=== PATIENT | female | born 2000 | race Caucasian/White ===

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

== ENCOUNTER 2021-09-13 01:16 | Observation (INO) | payer OTHER ==
[~2021-09-13 01:16] MED LIST: ONDA4TAB12 PO; OSEL75CA PO
[2021-09-13] MEDS ORDERED: IV RINGERS,LACTATED 1000ML 1,000 ML IV PRN (01:30)
[2021-09-13 01:44] LABS: BILIRUBIN,URINE SMALL (NEG); CLARITY,URINE CLEAR; COLOR,URINE AMBER; NITRITE,URINE NEGATIVE (NEG); PH,URINE 5.5 (<5.0-8.0); PROTEIN,URINE NEGATIVE (NEG-TRACE)
[2021-09-13 01:51] LABS: AMPHETAMINE/METHAMPHETAMINE NEG (NEG); BARBITURATES NEG (NEG); BENZODIAZEPINES NEG (NEG); CANNABINOIDS NEG (NEG); COCAINE NEG (NEG); METHADONE NEG (NEG); OPIATES NEG (NEG); PHENCYCLIDINE NEG (NEG)
[2021-09-13 01:58] LABS: BACTERIA,URINE FEW /HPF (0-FEW); RBC,URINE 0 /HPF (0-2)
[2021-09-13 02:10] LABS: AMNIO PT NEGATIVE
[2021-09-13] MEDS ORDERED: ACETAMINOPHEN 500 MG TABLET PO ONE (02:30)
== END 2021-09-13 04:05 | disposition home or self-care (01) ==
LOC: 3 SO LND 01:16
PROVIDERS: ADMIT Obstetrics & Gynecology; ATTEND Obstetrics & Gynecology
DX: O99.891 Other specified diseases and conditions complicating pregnancy (principal); M54.9 Dorsalgia, unspecified; R10.30 Lower abdominal pain, unspecified; O26.892 Other specified pregnancy related conditions, second trimester; H53.9 Unspecified visual disturbance; Z3A.21 21 weeks gestation of pregnancy; Z79.899 Other long term (current) drug therapy
CPT/HCPCS: 36415; 59025; 80307; 81001; 84112; G0378; G0379

== ENCOUNTER 2021-11-05 15:36 | Observation (INO) | payer OTHER ==
[2021-11-05 18:15] LABS: BILIRUBIN,URINE NEGATIVE (NEG); CLARITY,URINE CLEAR; COLOR,URINE YELLOW; NITRITE,URINE NEGATIVE (NEG); PROTEIN,URINE NEGATIVE (NEG-TRACE); UROBILINOGEN,URINE 0.2 mg/dL (0.2 mg/dL)
[2021-11-05 18:25] LABS: BACTERIA,URINE FEW /HPF (0-FEW); RBC,URINE OCC /HPF (0-2)
== END 2021-11-05 18:55 | disposition home or self-care (01) ==
LOC: 3 SO LND 15:36
PROVIDERS: ADMIT Obstetrics & Gynecology; ATTEND Obstetrics & Gynecology
DX: O62.9 Abnormality of forces of labor, unspecified (principal); O42.913 Preterm premature rupture of membranes, unspecified as to length of time between rupture and onset of labor, third trimester; Z3A.29 29 weeks gestation of pregnancy
CPT/HCPCS: 59025; 81001; G0378; G0379

== ENCOUNTER 2021-12-18 17:01 | Observation (INO) | payer OTHER ==
[2021-12-18 17:47] LABS: BILIRUBIN,URINE NEGATIVE (NEG); CLARITY,URINE CLEAR; COLOR,URINE AMBER; NITRITE,URINE NEGATIVE (NEG); PH,URINE 6.5 (<5.0-8.0); PROTEIN,URINE 30 mg/dL (NEG-TRACE)
[2021-12-18] MEDS ORDERED: IV RINGERS,LACTATED 1000ML 1,000 ML IV SCH (18:00)
[2021-12-18 18:10] LABS: BACTERIA,URINE MODERATE /HPF (0-FEW)
[2021-12-18 18:11] LABS: RBC,URINE >40 /HPF (0-2)
== END 2021-12-18 20:20 | disposition home or self-care (01) ==
LOC: 3 SO LND 17:01
PROVIDERS: ADMIT Obstetrics & Gynecology; ATTEND Obstetrics & Gynecology
DX: O46.93 Antepartum hemorrhage, unspecified, third trimester (principal); Z79.899 Other long term (current) drug therapy; Z3A.35 35 weeks gestation of pregnancy
CPT/HCPCS: 59025; 81001; 87086; G0378; G0379

== ENCOUNTER 2021-12-27 12:36 | Observation (INO) | payer OTHER ==
[2021-12-27] MEDS ORDERED: IV RINGERS,LACTATED 1000ML 1,000 ML IV PRN ×2 (13:15)
[2021-12-27] MEDS ORDERED: hydrOXYzine 25 MG TABLET PO PRN (14:15)
[2021-12-27 14:52] LABS: BILIRUBIN,URINE NEGATIVE (NEG); CLARITY,URINE CLOUDY; COLOR,URINE YELLOW; NITRITE,URINE NEGATIVE (NEG); PH,URINE 7.5 (<5.0-8.0); PROTEIN,URINE NEGATIVE (NEG-TRACE)
[2021-12-27 14:56] LABS: CREATININE,RANDOM URINE 61.2 mg/dL (Not Establ.)
[2021-12-27 15:00] LABS: AMPHETAMINE/METHAMPHETAMINE NEG (NEG); BARBITURATES NEG (NEG); BENZODIAZEPINES NEG (NEG); CANNABINOIDS NEG (NEG); COCAINE NEG (NEG); METHADONE NEG (NEG); OPIATES NEG (NEG); PHENCYCLIDINE NEG (NEG)
[2021-12-27 15:15] LABS: AMORPHOUS SEDIMENT,UR PRESENT /HPF; BACTERIA,URINE 0 /HPF (0-FEW); RBC,URINE 0 /HPF (0-2); WBC,URINE 0 /HPF (0-4)
[2021-12-27 15:26] LABS: BASO % 0 % (0-3); EOS % 0 % (0-3); HEMATOCRIT 34.7 % (36.0-47.0); HEMOGLOBIN 11.3 g/dL (12.0-15.5); LYMPH # 1.4 x10^3/uL (1.0-4.8); LYMPH % 13 % (24-48); MEAN CORPUSCULAR HEMOGLOBIN 29 pg (25-35); MEAN CORPUSCULAR HGB CONC 33 g/dL (31-37); MEAN CORPUSCULAR VOLUME 89 fL (79-100); MONO # 0.6 x10^3/uL (0.0-1.1); MONO % 6 % (0-9); NEUT # 8.8 x10^3/uL (1.8-7.7); NEUT % 81 % (31-73); PLATELET COUNT 198 x10^3/uL (140-400); RED BLOOD COUNT 3.88 x10^6/uL (3.50-5.40); RED CELL DISTRIBUTION WIDTH 14.7 % (11.5-14.5); WHITE BLOOD COUNT 10.9 x10^3/uL (4.0-11.0)
--- NOTE | 2021-12-27 15:27 | RAD ---
INDICATION: Reason: decreased movement / Spl. Instructions: / History: COMPARISON: None. TECHNIQUE: Focused ultrasound was performed of the uterus in order to obtain a biophysical pro file. Please note that this is not a complete anatomic survey. FINDINGS: Breathin Gross Body Movement: 0 Tone: 2 Amniotic Fluid Volume 2. Cephalic presentation at time of exam. Amniotic fluid index is 9.8. heart rate is 157 IMPRESSION: biophysical profile score is 6 out of 8 with the decrease secondary to decreased movement . Continued follow-up could be obtained. Electronically signed by: Andriy Osman MD (12/27/2021 3:25 PM) [id number]
[2021-12-27 15:47] LABS: CALCIUM 8.9 mg/dL (8.5-10.1); CREATININE 0.6 mg/dL (0.6-1.0); GFR 126.2; POTASSIUM 4.6 mmol/L (3.5-5.1)
[2021-12-27 15:52] LABS: ALBUMIN 2.4 g/dL (3.4-5.0); ALBUMIN/GLOBULIN RATIO 0.5 (1.0-1.7); URIC ACID 3.1 mg/dL (2.6-6.0)
== END 2021-12-27 17:20 | disposition home or self-care (01) ==
LOC: 3 SO LND 12:36
PROVIDERS: ADMIT Obstetrics & Gynecology; ATTEND Obstetrics & Gynecology
DX: O62.9 Abnormality of forces of labor, unspecified (principal); O99.891 Other specified diseases and conditions complicating pregnancy; M54.9 Dorsalgia, unspecified; O36.8130 Decreased fetal movements, third trimester, not applicable or unspecified; O26.893 Other specified pregnancy related conditions, third trimester; R51.9 Headache, unspecified; Z3A.36 36 weeks gestation of pregnancy; Z79.899 Other long term (current) drug therapy; Z98.890 Other specified postprocedural states
CPT/HCPCS: 36415; 59025; 76819; 80053; 80307; 81001; 82570; 83615; 84156; 84550; 85025; 96360; G0378; G0379; J7120

== ENCOUNTER 2022-01-03 19:23 | Inpatient (IN) | payer OTHER ==
[~2022-01-03] VITALS: Ht 157.5 cm; Wt 86.0 kg
[2022-01-03] MEDS ORDERED: IV RINGERS,LACTATED 1000ML 1,000 ML IV PRN (19:45)
[2022-01-03 20:10] LABS: BILIRUBIN,URINE SMALL (NEG); CLARITY,URINE CLEAR; COLOR,URINE AMBER; NITRITE,URINE NEGATIVE (NEG); PROTEIN,URINE NEGATIVE (NEG-TRACE)
[2022-01-03 20:14] LABS: AMNIO PT POSITIVE
[2022-01-03 20:16] LABS: BACTERIA,URINE MODERATE /HPF (0-FEW); RBC,URINE OCC /HPF (0-2)
[2022-01-03] MEDS ORDERED: LIDOCAINE 1% PF 30 ML VIAL. INJ PRN (20:30)
[2022-01-03] MEDS ORDERED: OXYTOCIN 30 UNIT/500 ML PREMIX 500 ML IV PRN ×2 (20:30)
[2022-01-03] MEDS ORDERED: BUTORPHANOL 2 MG/ML VIAL. IVP PRN ×2 (20:30)
[2022-01-03] MEDS ORDERED: TERBUTALINE 1 MG/ML VIAL. SQ PRN (20:30)
[2022-01-03] MEDS ORDERED: ACETAMINOPHEN 325 MG TABLET. PO PRN (20:30)
[2022-01-03] MEDS ORDERED: 0.9 % SODIUM CHLORIDE 10 ML DISP.SYRIN. IV PRN (20:30)
[2022-01-03] MEDS ORDERED: PENICILLIN G K 5,000,000 UNIT in IV DEXTROSE 5% 100ML 100 ML IV ONE (21:00)
[2022-01-03] MEDS: IV RINGERS,LACTATED 1000ML 1,000 ML IV SCH (21:13)
[2022-01-03 21:21] LABS: BASO # 0.1 x10^3/uL (0.0-0.2); BASO % 1 % (0-3); EOS % 0 % (0-3); HEMATOCRIT 34.7 % (36.0-47.0); HEMOGLOBIN 11.5 g/dL (12.0-15.5); LYMPH # 1.8 x10^3/uL (1.0-4.8); LYMPH % 17 % (24-48); MEAN CORPUSCULAR HEMOGLOBIN 29 pg (25-35); MEAN CORPUSCULAR HGB CONC 33 g/dL (31-37); MEAN CORPUSCULAR VOLUME 88 fL (79-100); MONO # 0.6 x10^3/uL (0.0-1.1); MONO % 5 % (0-9); NEUT # 7.7 x10^3/uL (1.8-7.7); NEUT % 76 % (31-73); PLATELET COUNT 234 x10^3/uL (140-400); RED BLOOD COUNT 3.97 x10^6/uL (3.50-5.40); RED CELL DISTRIBUTION WIDTH 14.9 % (11.5-14.5); WHITE BLOOD COUNT 10.2 x10^3/uL (4.0-11.0)
[2022-01-03 21:54] VITALS: BP 152/72
--- NOTE | 2022-01-03 23:01 | PDOC1 ---
TILE PRESSER H&P Date of Admission: Date of Admission: Jan 03, 2022 at 19:23 History of Present Illness: [id number] @ 38.0 weeks (d/w) presents initially with complaints of UCs, small gush of clear, non-odorous fluid at 1930 per RN. Amnisure +. PNC @ [facility]. has been uncomplicated to date. Previous PTL&D @ 36 weeks x 2, otherwise denies complications with previous pregnancies/labors/deliveries. Pelvis proven to [id number]. New paternity. PMH unremarkable. Desires unmedicated labor/delivery, open to IV analgesia. Pertinent Labs: BT: O+, ab neg RI V-NI RPR NR HIV Neg Hep B/C Neg GCT - not done GBS - unknown H/H: 11.5/34.7 Past Medical History: PMH: Unremarkable Cardiovascular: No pertinent hx Pulmonary: No pertinent hx GI: No pertinent hx Heme/Onc: No pertinent hx Hepatobiliary: No pertinent hx Psych: No pertinent hx Rheumatologic: No pertinent hx Infectious disease: No pertinent hx ENT: No pertinent hx Renal/: No pertinent hx Endocrine: No pertinent hx Dermatology: No pertinent hx Grav: 3 Para: 2 Social History: Smoke: No ALCOHOL: none Drugs: None Medications: Meds: Current Medications Medications (Trade) Dose Ordered Sig/Rabia Route PRN Reason Start Time Stop Time Status Last Admin Dose Admin Ringer's Solution 1,000 ml @ 125 mls/hr Q8H IV 01/03/22 20:30 01/03/22 21:13 Allergies: Coded Allergies: No Known Drug Allergies (Unverified , 11/03/19) Physical Exam: Vital Signs: Vital Signs Date Time Temp Pulse Resp B/P (MAP) Pulse Ox O2 Delivery O2 Flow Rate FiO2 01/03/22 21:54 98.8 99 20 152/72 (98) 98 Room Air 98.8 PE: GENERAL: No apparent distress. Alert and oriented. HEENT: Head normocephalic, atraumatic. NECK: Supple LUNGS: Clear to auscultation. HEART: RRR, S1, S2 present, pulses intact ABDOMEN: Soft, positive bowel sounds. EXTREMITIES: No cyanosis or edema. NEUROLOGIC: Normal speech, normal tone PSYCHIATRIC: Normal affect, normal mood. SKIN: No ulceration. Labs: Laboratory Tests Test 01/03/22 19:45 01/03/22 19:48 01/03/22 21:09 Urine Collection Type Unknown Urine Color Denise Urine Clarity Clear Urine pH 7.0 (<5.0-8.0) Urine Specific [place] 1.015 (1.000-1.030) Urine Protein Negative mg/dL (NEG-TRACE) Urine Glucose (UA) Negative mg/dL (NEG) Urine Ketones (Stick) Negative mg/dL (NEG) Urine Blood Negative (NEG) Urine Nitrite Negative (NEG) Urine Bilirubin Small (NEG) Urine Urobilinogen Dipstick 1.0 mg/dL (0.2 mg/dL) Urine Leukocyte Esterase Small (NEG) Urine RBC Occ /HPF (0-2) Urine WBC 11-20 /HPF (0-4) Urine Squamous Epithelial Cells Mod /LPF Urine Bacteria Moderate /HPF (0-FEW) Urine Mucus Mod /LPF Amniotic Fluid Swab Test Positive White Blood Count 10.2 x10^3/uL (4.0-11.0) Red Blood Count 3.97 x10^6/uL (3.50-5.40) Hemoglobin 11.5 g/dL (12.0-15.5) L Hematocrit 34.7 % (36.0-47.0) L Mean Corpuscular Volume 88 fL (79-100) Mean Corpuscular Hemoglobin 29 pg (25-35) Mean Corpuscular Hemoglobin Concent 33 g/dL (31-37) Red Cell Distribution Width 14.9 % (11.5-14.5) H Platelet Count 234 x10^3/uL (140-400) Neutrophils (%) (Auto) 76 % (31-73) H Lymphocytes (%) (Auto) 17 % (24-48) L Monocytes (%) (Auto) 5 % (0-9) Eosinophils (%) (Auto) 0 % (0-3) Basophils (%) (Auto) 1 % (0-3) Neutrophils # (Auto) 7.7 x10^3/uL (1.8-7.7) Lymphocytes # (Auto) 1.8 x10^3/uL (1.0-4.8) Monocytes # (Auto) 0.6 x10^3/uL (0.0-1.1) Eosinophils # (Auto) 0.0 x10^3/uL (0.0-0.7) Basophils # (Auto) 0.1 x10^3/uL (0.0-0.2) Treponema pallidum Antibody Nonreactive (Nonreactive) Laboratory Tests 01/03/22 21:09 Laboratory Tests 01/03/22 21:09 Assessment & Plan: SVE with progressive change to 5/80/-2, moderate amount of clear, non-odorous fluid returned with SVE. Admit for labor/SROM, expectant management. Anticipate . A/P [id number] @ 38/0 weeks (d/19w) 1. Spontaneous labor 2. SROM - clear 3. CAT I FHT 4. GBS Unknown - no history of prior infant with GBS infection 5. Varicella Non-Immune 6. No GCT 7. s/p TDaP 10/30 8. s/p Flu 10/30 GERMAN NORRIS CNM Jan 03, 2022 23:01
--- NOTE | 2022-01-04 00:48 | PDOC4 ---
VAGINAL DELIVERY DATE DATE: 01/04/22 TIME: 00:46 TIME 0033 : 3 Para: 3 EDC: Jan 18, 2022 EGA: 38.1 VAGINAL DELIVERY: VTX VACCUM ASSISTED: No PLACENTA: Spontaneous (0040) 8/9 SEX: Male WEIGHT Weight [3310gm] Nuchal Cord: No Amniotic Fluid: Clear PAIN: Natural EPISIOTOMY: No EXTENSION: No EBL 350mL COMPLICATIONS None CONDITION Both mother and infant stable following delivery. Anticipate routine PP course. Signs of Intrauterine Infectio: None Shoulder Dystocia: No DIAGNOSIS GERMAN TONG CNM Jan 04, 2022 00:48
[2022-01-04] MEDS ORDERED: 0.9 % SODIUM CHLORIDE 10 ML DISP.SYRIN. IV PRN (01:00)
[2022-01-04] MEDS ORDERED: ACETAMINOPHEN 325 MG TABLET. PO PRN (01:00)
[2022-01-04] MEDS ORDERED: SIMETHICONE 80 MG TAB.CHEW PO PRN (01:00)
[2022-01-04] MEDS ORDERED: diphenhydrAMINE HCL 25 MG CAPSULE PO PRN (01:00)
[2022-01-04] MEDS ORDERED: HYDROCORTISONE 1% TOPICAL OINTMENT 30GM TUBE. TP PRN (01:00)
[2022-01-04] MEDS ORDERED: PENICILLIN G K 2,500,000 UNIT in IV DEXTROSE 5% 50 ML IV SCH (01:00)
[2022-01-04] MEDS ORDERED: PHENYLEPH/MINERAL OIL/PETROLAT RECTAL OINTMENT TUBE. RC PRN (01:00)
[2022-01-04] MEDS ORDERED: MAG HYDROX/ALUMINUM HYD/SIMETH 30 ML ORAL.SUSP PO PRN (01:00)
[2022-01-04] MEDS ORDERED: MAGNESIUM HYDROXIDE 2,400 MG/30 ML ORAL.SUSP. PO PRN (01:00)
[2022-01-04] MEDS ORDERED: MMR per PROTOCOL. MC PRN (01:00)
[2022-01-04] MEDS ORDERED: BENZOCAINE 20% TOPICAL AEROSOL SPRAY 57GM CAN. TP PRN (01:00)
[2022-01-04] MEDS: IBUPROFEN 400 MG TABLET. PO PRN ×4 (01:20→19:37)
[2022-01-04 02:25] VITALS: BP 109/66
[2022-01-04 03:21] VITALS: BP 98/55
[2022-01-04] MEDS: IV RINGERS,LACTATED 1000ML 1,000 ML IV SCH (03:25)
[2022-01-04] MEDS: DOCUSATE SODIUM 100 MG CAPSULE. PO PRN (08:49)
[2022-01-04] MEDS: MULTIVITAMIN with MINERAL TABLET. PO SCH (08:49)
[2022-01-04 11:00] VITALS: BP 109/55
[2022-01-04 17:59] VITALS: BP 104/69
[2022-01-04 19:37] VITALS: BP 113/64
[2022-01-05 00:05] VITALS: BP 110/55
[2022-01-05] MEDS: IBUPROFEN 400 MG TABLET. PO PRN ×3 (03:03→21:37)
[2022-01-05 03:38] VITALS: BP_SYST 114; BP_SYST 116; BP_DIAS 56; BP_DIAS 60
[2022-01-05] MEDS ORDERED: IV RINGERS,LACTATED 1000ML 1,000 ML IV PRN (04:00)
[2022-01-05 07:47] LABS: BASO # 0.1 x10^3/uL (0.0-0.2); BASO % 1 % (0-3); EOS # 0.1 x10^3/uL (0.0-0.7); EOS % 1 % (0-3); HEMATOCRIT 33.5 % (36.0-47.0); HEMOGLOBIN 10.8 g/dL (12.0-15.5); LYMPH # 2.3 x10^3/uL (1.0-4.8); LYMPH % 23 % (24-48); MEAN CORPUSCULAR HEMOGLOBIN 29 pg (25-35); MEAN CORPUSCULAR HGB CONC 32 g/dL (31-37); MEAN CORPUSCULAR VOLUME 89 fL (79-100); MONO # 0.7 x10^3/uL (0.0-1.1); MONO % 7 % (0-9); NEUT # 6.9 x10^3/uL (1.8-7.7); NEUT % 69 % (31-73); PLATELET COUNT 213 x10^3/uL (140-400); RED BLOOD COUNT 3.75 x10^6/uL (3.50-5.40); RED CELL DISTRIBUTION WIDTH 15.2 % (11.5-14.5); WHITE BLOOD COUNT 10.1 x10^3/uL (4.0-11.0)
[2022-01-05] MEDS ORDERED: FERROUS SULFATE 325 MG TABLET. PO SCH (08:00)
[2022-01-05 08:45] VITALS: BP 98/63
[2022-01-05] MEDS: MULTIVITAMIN with MINERAL TABLET. PO SCH (09:21)
[2022-01-05] MEDS: DOCUSATE SODIUM 100 MG CAPSULE. PO PRN (09:21)
--- NOTE | 2022-01-05 11:42 | PDOC ---
GRAIN MIXER PROGRESS NOTE Date of Service: DATE: 01/05/22 TIME: 11:42 Subjective: Pt with good pain control. Alisia PO. Voiding. Minimal lochia. Objective: Vital Signs: Vital Signs Date Time Temp Pulse Resp B/P (MAP) Pulse Ox O2 Delivery O2 Flow Rate FiO2 01/04/22 11:00 99.2 80 20 109/55 (73) 99.2 01/04/22 19:37 97 Room Air Vital Signs Date Time Temp Pulse Resp B/P (MAP) Pulse Ox O2 Delivery O2 Flow Rate FiO2 01/05/22 08:45 97.5 67 20 98/63 (75) 97 Room Air 97.5 Labs: Laboratory Tests Test 01/05/22 07:39 White Blood Count 10.1 x10^3/uL (4.0-11.0) Red Blood Count 3.75 x10^6/uL (3.50-5.40) Hemoglobin 10.8 g/dL (12.0-15.5) L Hematocrit 33.5 % (36.0-47.0) L Mean Corpuscular Volume 89 fL (79-100) Mean Corpuscular Hemoglobin 29 pg (25-35) Mean Corpuscular Hemoglobin Concent 32 g/dL (31-37) Red Cell Distribution Width 15.2 % (11.5-14.5) H Platelet Count 213 x10^3/uL (140-400) Neutrophils (%) (Auto) 69 % (31-73) Lymphocytes (%) (Auto) 23 % (24-48) L Monocytes (%) (Auto) 7 % (0-9) Eosinophils (%) (Auto) 1 % (0-3) Basophils (%) (Auto) 1 % (0-3) Neutrophils # (Auto) 6.9 x10^3/uL (1.8-7.7) Lymphocytes # (Auto) 2.3 x10^3/uL (1.0-4.8) Monocytes # (Auto) 0.7 x10^3/uL (0.0-1.1) Eosinophils # (Auto) 0.1 x10^3/uL (0.0-0.7) Basophils # (Auto) 0.1 x10^3/uL (0.0-0.2) Laboratory Tests 01/05/22 07:39 Laboratory Tests 01/05/22 07:39 Physical Exam: GENERAL: No apparent distress. Alert and oriented. HEENT: Head normocephalic, atraumatic. NECK: Supple LUNGS: Clear to auscultation. HEART: RRR, S1, S2 present, pulses intact ABDOMEN: Soft, positive bowel sounds. EXTREMITIES: No cyanosis or edema. NEUROLOGIC: Normal speech, normal tone PSYCHIATRIC: Normal affect, normal mood. SKIN: No ulceration. FFNT below umb No C/C/E Assessment & Plan: A/P 21y PPD #1 s/p 1.) PP doing well 2.) Bandar NI 3.) Elevated LFTs 09/13/21, repeat nml 11/05/21 4.) Hgb 11.5 -> 10.8 5.) Flu vaccine given 10/15/21 6.) TDAP given 11/05/21 7.) Cont PP OLMAN Lawson MD Jan 05, 2022 11:42
[2022-01-05 17:15] VITALS: BP 105/60
[2022-01-05 21:20] VITALS: BP 118/68
[2022-01-06 05:30] VITALS: BP 116/64
[2022-01-06] MEDS: IBUPROFEN 400 MG TABLET. PO PRN (06:19)
[2022-01-06] MEDS: MULTIVITAMIN with MINERAL TABLET. PO SCH (08:19)
[2022-01-06] MEDS: DOCUSATE SODIUM 100 MG CAPSULE. PO PRN (08:19)
[2022-01-06 08:21] VITALS: BP 104/59
--- NOTE | 2022-01-06 09:02 | PDOC ---
LOCKSTITCH TUNNEL ELASTIC OPERATOR PROGRESS NOTE Date of Service: DATE: 01/06/22 TIME: 09:02 Subjective: Pt with good pain control. Alisia PO. Voiding. Minimal lochia. Objective: Vital Signs: Vital Signs Date Time Temp Pulse Resp B/P (MAP) Pulse Ox O2 Delivery O2 Flow Rate FiO2 01/05/22 08:45 97.5 67 20 98/63 (75) 97 Room Air 97.5 Vital Signs Date Time Temp Pulse Resp B/P (MAP) Pulse Ox O2 Delivery O2 Flow Rate FiO2 01/06/22 08:21 97.9 64 18 104/59 (74) 99 Room Air 97.9 Physical Exam: GENERAL: No apparent distress. Alert and oriented. HEENT: Head normocephalic, atraumatic. NECK: Supple LUNGS: Clear to auscultation. HEART: RRR, S1, S2 present, pulses intact ABDOMEN: Soft, positive bowel sounds. EXTREMITIES: No cyanosis or edema. NEUROLOGIC: Normal speech, normal tone PSYCHIATRIC: Normal affect, normal mood. SKIN: No ulceration. FFNT below umb No C/C/E Assessment & Plan: A/P 21y PPD #2 s/p 1.) PP doing well 2.) Bandar NI 3.) Elevated LFTs 09/13/21, repeat nml 11/05/21 4.) Hgb 11.5 -> 10.8 5.) Flu vaccine given 10/15/21 6.) TDAP given 11/05/21 7.) D/c home OLMAN BRANDON MD Jan 06, 2022 09:02
[2022-01-06] MEDS ORDERED: IBUP-1060 PO (09:05)
[2022-01-06] MEDS ORDERED: DOCU-109 PO (09:05)
[2022-01-06 11:55] VITALS: BP 117/70
--- NOTE | 2022-01-06 12:00 | NUR ---
Discharge Note: FRANCK CRUZ M3 SO LND Discharge instructions and discharge home medications reviewed with Patient and a copy given. All questions have been answered and understanding verbalized. The following instructions and handouts were given: Discharge Instructions Post Patients Well Wheelchair Van Driver, Peggs Depression and Baby Blues Care After Vaginal Delivery Patient discharged to home with self-care via ambulation with steady gait to private vehicle.
== END 2022-01-06 12:00 | disposition home or self-care (01) | DRG 807 ==
LOC: 3 SO LND 19:23 → OBSVTOIN 19:23 → 3 SO LND 20:50
PROVIDERS: ADMIT Obstetrics & Gynecology; ATTEND Obstetrics & Gynecology
PROC: 10E0XZZ Delivery of Products of Conception, External Approach (ICD-10-PCS; principal; 2022-01-04)
DX: O80 Encounter for full-term uncomplicated delivery (principal); Z37.0 Single live birth; Z3A.38 38 weeks gestation of pregnancy; Z20.822 Contact with and (suspected) exposure to COVID-19
CPT/HCPCS: 36415; 81001; 84112; 85025; 86592; 86850; 86900; 86901; 87086; 87426; J0595; J7120; U0003; G0378

== ENCOUNTER 2022-04-03 21:20 | Emergency (ER) | payer OTHER ==
[~2022-04-03] VITALS: Ht 157.5 cm; Wt 75.0 kg
[~2022-04-03 21:20] MED LIST changes: +DOCU-109 PO; +IBUP-1060 PO
[2022-04-03] MEDS ORDERED: IV NORMAL SALINE 1000ML BAG 1,000 ML IV ONE (21:45)
[2022-04-03] MEDS ORDERED: ONDANSETRON PF 4 MG/2 ML VIAL. IVP ONE (21:45)
--- NOTE | 2022-04-03 21:47 | PHYS DOC ---
Past Medical History Past Medical History: No Pertinent History Past Surgical History: No Surgical History Smoking Status: Never Smoker Alcohol Use: None Drug Use: None General Adult EDM: Chief Complaint: NAUSEA/VOMITING/DIARRHEA HPI: HPI: 21 yo F, no sig pmhx/pshx/allergies, recent vaginal delivery Dec 2021, presents with 1 day of nausea NBNB vomiting x 6 hours, bloating, and 3 episodes of soft nonbloody stool. No travel or known sick contacts. No fever, sorethroat, cough, or chest pain. Was in her usual state of health prior. No urinary complaints. Review of Systems: Review of Systems: Constitutional: Denies fever or chills. [] Eyes: Denies change in visual acuity. [] HENT: Denies nasal congestion or sore throat. [] Respiratory: Denies cough or shortness of breath. [] Cardiovascular: Denies chest pain or edema. [] GI: + abdominal pain, nausea, vomiting, diarrhea; No bloody stools : Denies dysuria. [] Musculoskeletal: Denies back pain or joint pain. [] Integument: Denies rash. [] Neurologic: Denies headache, focal weakness or sensory changes. [] Endocrine: Denies polyuria or polydipsia. [] Lymphatic: Denies swollen glands. [] Psychiatric: Denies depression or anxiety. [] Heart Score: C/O Chest Pain: No Risk Factors: Risk Factors: DM, Current or recent (<one month) smoker, HTN, HLP, family history of CAD, obesity. Risk Scores: Score 0 - 3: 2.5% MACE over next 6 weeks - Discharge Home Score 4 - 6: 20.3% MACE over next 6 weeks - Admit for Clinical Observation Score 7 - 10: 72.7% MACE over next 6 weeks - Early Invasive Strategies Current Medications: Current Medications Medications (Trade) Dose Ordered Sig/Rabia Start Time Stop Time Status Last Admin Dose Admin Ondansetron HCl (Zofran) 4 mg 1X ONCE 04/03/22 21:45 04/03/22 21:46 Sodium Chloride 1,000 ml @ 999 mls/hr 1X ONCE 04/03/22 21:45 04/03/22 22:45 Allergies: Allergies: Allergies Coded Allergies Type Severity Reaction Last Updated Verified No Known Drug Allergies 04/03/22 No Physical Exam: PE: Constitutional: Well developed, well nourished, no acute distress, non-toxic appearance. [] HENT: Normocephalic, atraumatic, bilateral external ears normal, oropharynx moist, no oral exudates, nose normal. [] Eyes: PERRLA, EOMI, conjunctiva normal, no discharge. [] Neck: Normal range of motion, no tenderness, supple, no stridor. [] Cardiovascular:Heart rate regular rhythm, no murmur [] Lungs & Thorax: Bilateral breath sounds clear to auscultation [] Abdomen: Bowel sounds normal, soft, no tenderness, no masses, no pulsatile mass es. [] Skin: Warm, dry, no erythema, no rash. [] Back: No tenderness, no CVA tenderness. [] Extremities: No tenderness, no cyanosis, no clubbing, ROM intact, no edema. [] Neurologic: Alert and oriented X 3, normal motor function, normal sensory function, no focal deficits noted. [] Psychologic: Affect normal, judgement normal, mood normal. [] Current Patient Data: Vital Signs: Vital Signs Date Time Temp Pulse Resp B/P (MAP) Pulse Ox O2 Delivery O2 Flow Rate FiO2 04/03/22 21:38 98.4 65 16 121/63 (82) 99 Room Air 98.4 EKG: EKG: [] Radiology/Procedures: Radiology/Procedures: [] Course & Med Decision Making: Course & Med Decision Making Pertinent Labs and Imaging studies reviewed. (See chart for details) Additional Social History: PMD from non-affiliated facility. Patient Lives at home. Family History: Non-pertinent to today's complaint. Nursing Notes Reviewed Previous Medical Records requested via [facility] Web: Reviewed by me. PROCEDURE: ABDOMEN LTD Impression: Gallbladder hydrops. No evidence of stones or acute cholecystitis. EMERGENCY DEPARTMENT COURSE/ MEDICAL DECISION MAKING: I examined the patient, evaluated and addressed patient's chief complaint. The patient was treated with NS bolus, Zofran Suspicious for gastroenteritis, lower suspicion for acute intraabdominal surgical pathology. Vitals wnl. Well appearing. Abd soft NTND. Found to have gallbladder hydrops, mildly elevated LFTs, no stones or acute cholecystitis. Mildly elevated WBC at 11. Afebrile and vitals wnl, soft abdomen. On re-assessment, patient feels much better. Recommended f/u with gastroenterology. Return precautions given. The patient understands that todays Emergency Department evaluation does not represent a comprehensive medical workup, and it is impossible to diagnose all possible illnesses from a single Emergency Department visit. The patient verbalized understanding that it is absolutely necessary to have follow-up with regular primary care physician within 1-2 days for more detailed workup and continued exam. I explained the findings and plan to the patient, who expressed verbal understanding and agreed with plan for discharge and follow up. The patient was given after care instructions and welcomed to return to the ED for re-evaluation in 8-12 hours, especially for any new or worsening symptoms. Patient's blood pressure was elevated (>120/80) but appears stable without evidence of end organ damage, malignant hypertension, hypertensive emergency or urgency. The patient was counseled about the risks of hypertension and urged to pursue outpatient monitoring and therapy within a week with their primary care physician. The patient was stable at the time of discharge. DIAGNOSTIC IMPRESSION: 1. gall bladder hydrops 2. nausea and vomiting DISPOSITION: Disposition: Discharge Home. Condition: Improved Follow-Up: PMD, gastroenterology Prescriptions: tylenol, ibuprofen Return to the Emergency Department for new or worsening symptoms. Getnry Disclaimer: Gentry Disclaimer: This electronic medical record was generated, in whole or in part, using a voice recognition dictation system. Departure Departure Impression: Primary Impression: Gallbladder hydrops Additional Impression: Nausea & vomiting Disposition: HOME / SELF CARE / HOMELESS Condition: STABLE Referrals: NO PCP (PCP) Scripts Ibuprofen (IBUPROFEN) 400 Mg Tablet 400 MG PO PRN Q6HRS PRN for PAIN, #30 TAB Prov: BRIANNA CALLE MD 04/04/22 Acetaminophen (TYLENOL) 325 Mg Tablet 1-2 TAB PO QID PRN for PAIN, #60 TAB 0 Refills Prov: BRIANNA CALLE MD 04/04/22 BRIANNA CALLE MD April 03, 2022 21:47
[2022-04-03 21:49] LABS: BASO % 0 % (0-3); EOS % 0 % (0-3); HEMATOCRIT 39.1 % (36.0-47.0); HEMOGLOBIN 13.2 g/dL (12.0-15.5); LYMPH # 0.8 x10^3/uL (1.0-4.8); LYMPH % 7 % (24-48); MEAN CORPUSCULAR HEMOGLOBIN 29 pg (25-35); MEAN CORPUSCULAR HGB CONC 34 g/dL (31-37); MEAN CORPUSCULAR VOLUME 86 fL (79-100); MONO # 0.3 x10^3/uL (0.0-1.1); MONO % 2 % (0-9); NEUT # 10.5 x10^3/uL (1.8-7.7); NEUT % 91 % (31-73); PLATELET COUNT 251 x10^3/uL (140-400); RED BLOOD COUNT 4.54 x10^6/uL (3.50-5.40); RED CELL DISTRIBUTION WIDTH 14.8 % (11.5-14.5); WHITE BLOOD COUNT 11.7 x10^3/uL (4.0-11.0)
[2022-04-03 22:02] LABS: CALCIUM 9.5 mg/dL (8.5-10.1); CREATININE 0.9 mg/dL (0.6-1.0); POTASSIUM 4.5 mmol/L (3.5-5.1)
[2022-04-03 22:03] LABS: PREG TEST PT QUAL NEGATIVE (NEG)
[2022-04-03 22:07] LABS: ALBUMIN 3.9 g/dL (3.4-5.0); ALBUMIN/GLOBULIN RATIO 0.9 (1.0-1.7); TOTAL BILIRUBIN 1.2 mg/dL (0.2-1.0); TOTAL PROTEIN 8.1 g/dL (6.4-8.2)
--- NOTE | 2022-04-04 01:25 | RAD ---
Clinical History: Elevated liver enzymes. Technique: Sonographic examination of the right upper quadrant of the abdomen was performed and mult iple static images were obtained. Comparison: none Findings: Liver: The majority of the liver is visualized and appears homogeneous. Common bile duct: Appears normal and measures 5 mm in diameter. Gallbladder: The gallbladder is distended however there is no stones wall thickening or surrounding fluid. Pancreas: is not well visualized due to overlying bowel gas. Right kidney: appears normal and measures 11 cm in length. Main Portal Vein: Normal hepatopedal flow Aorta: normal IVC: normal Impression: Gallbladder hydrops. No evidence of stones or acute cholecystitis. Electronically signed by: Landon Hanna III, MD (04/04/2022 1:22 AM) BIRD
[2022-04-04 01:37] LABS: BARBITURATES NEG (NEG); BENZODIAZEPINES NEG (NEG); CANNABINOIDS NEG (NEG); COCAINE NEG (NEG); METHADONE NEG (NEG); OPIATES NEG (NEG); PHENCYCLIDINE NEG (NEG)
[2022-04-04 01:42] LABS: BACTERIA,URINE 0 /HPF (0-FEW); RBC,URINE 0 /HPF (0-2); WBC,URINE RARE /HPF (0-4)
[2022-04-04 01:43] LABS: AMPHETAMINE/METHAMPHETAMINE NEG (NEG)
[2022-04-04] MEDS ORDERED: IBUP-1027 PO (01:55)
[2022-04-04] MEDS ORDERED: ACET325T9 PO (01:55)
[2022-04-04 02:11] VITALS: BP 132/72
== END 2022-04-04 02:15 | disposition home or self-care (01) ==
LOC: ER 21:20
DX: R11.2 Nausea with vomiting, unspecified (principal); R14.0 Abdominal distension (gaseous); K82.1 Hydrops of gallbladder
CPT/HCPCS: 36415; 76705; 80053; 80307; 81001; 83690; 84703; 85025; 87426; 96361; 96374; 99284; J2405; J7030